=== PATIENT | female | born 1955 | race Caucasian/White ===

== ENCOUNTER → 2019-04-23 10:53 | Outpatient (CLI) | payer BC | END | disposition home or self-care (01) | LOC: D.HCCARDIO 10:53 | PROVIDERS: ATTEND Internal Medicine Cardiovascular Disease | DX: Z03.89 Encounter for observation for other suspected diseases and conditions ruled out (principal) ==

== ENCOUNTER 2019-06-18 11:06 | Outpatient (CLI) | payer BC ==
[~2019-06-18] VITALS: Ht 165.1 cm; Wt 88.5 kg
--- NOTE | ~2019-06-18 | HEMODYNAMI ---
PATIENT:STEVO ARIAS MEDICAL RECORD: [id number] : 53 LOCATION:[place] ADMISSION DATE: 06/18/19 Generatedon:06/18/201914:10 Patient name: STEVO ARIAS Patient #: [id number] SSN: [id number] : 1955 Date of study: 06/18/2019 Page: Of Hemodynamic Procedure Report Patient Data Patient Demographics Procedure consent was obtained First Name: STEVO Gender: Female Last Name: HUGO : 1955 Patient #: [id number] Age: 64 year(s) Race: Unknown SSN: [id number] Additional ID: [id number] Contact details [address]: [address] [place] [address] State: [place] City: [place] Zip code: [address] Past Medical History Allergies: No known allergies Admission Admission Data Admission Date: 06/18/2019 Admission Time: 11:06 Arrival Date: 06/18/2019 Arrival Time: 0:00 Admit Source: Other Insurance Payor: Private health insurance Height (in.): 64.96 BSA: 1.95 (m2) Height (cm.): 165 BMI: 32.32 (kg/m2) Weight (lbs.): 194.01 Weight (kg.): 88 Lab Results Lab Result Date: 06/18/2019 Lab Result Time: 0:00 Biochemistry Name Units Result Min Max BUN mg/dl 10 --(-*--)-- 7 18 Creatinine mg/dl 0.8 --(-*--)-- 0.6 1.3 eGFR ml/min 76.56024 *-(----)-- 90 120 NONAFRICAN CBC Name Units Result Min Max Hemoglobin g/dl 10.4 *-(----)-- 13.5 17.5 Procedure Procedure Types Cath Procedure Diagnostic Procedure C [facility] w/Coronaries Sedation Charges Moderate Sedation up to 30 minutes PCI Procedure Coronary Stent Coronary Stent Initial Hemochron ACT Test Procedure Description Procedure Date Procedure Date: 06/18/2019 Procedure Start Time: 13:39 Procedure End Time: 14:05 Procedure Staff Name Function Ap Giles MD Performing Physician Tiffanie Palumbo RT Monitor Liana Aguilar RT Scrub Renetta Awda RN Nurse Procedure Data Cath Procedure Fluoroscopy Diagnostic fluoroscopy Total fluoroscopy Time: 5.1 time: 5.1 min min Diagnostic fluoroscopy Total fluoroscopy dose: 766 dose: 766 mGy mGy Contrast Material Contrast Material Type Amount (ml) Isovue 300 117 Entry Location Entry Primary Successful Side Size Upsize Upsize Entry Closure Succes sful Closure Location (Fr) 1 (Fr) 2 (Fr) Remarks Device Remarks Femoral Right 5 Fr 6 Fr Exoseal artery Short Estimated blood loss: 10 ml Diagnostic catheters Device Type Used For End Catheter Placement MULTIPACK JL 4.0 5Fr Procedure catheter MULTIPACK 3DRC 5Fr Procedure catheter MULTIPACK Pigtail 5 Fr Ventriculography catheter Procedure Complications No complications Procedure Medications Medication Administration Route Dosage Oxygen etCO2 Nasal cannula 2 l/min Lidocaine 2% added to field 20 Heparin Flush Bag added to field 2 bags (1000units/500ml NS) 0.9% NaCl I.V. 100 ml/hr Versed I.V. 1 mg Fentanyl I.V. 50 mcg Versed I.V. 1 mg Fentanyl I.V. 50 mcg Versed I.V. 1 mg Fentanyl I.V. 50 mcg Heparin Bolus I.V. 8500 units Versed I.V. 1 mg Nitroglycerin IC/IA I.C. 100 mcg Plavix P.O. 600 mg Hemodynamics Rest BSA: 1.95 (m2) HGB: 10.4 (g/dl) O2 Consumption: Estimated: 191.95 (ml/min) O2 Co nsumption indexed: Estimated:98.44 (ml/min/m) Heart Rate: 83 (bpm) Pressure Samples Time Site Value (mmHg) Purpose Heart Use Rate(bpm) 13:47 LV 128/-3,15 Snapshot 88 Gradients Valve Time Site Site Mean SEP/DFP Peak To Heart Use 1 2 (mmHg) (sec/min) Peak Rate (mmHg) (bpm) Aortic 13:48 LV AO 93 Snapshots Pre Cath Intra NCS Post Cath Vital Signs Time Heart Resp SPO2 etCO2 NIBP (mmHg) Rhythm Pain Sedation Rate (ipm) (%) (mmHg) Status Level (bpm) 13:30:11 75 20 98 27.7 125/72(93) NSR 0 (11) 10(A) , No pain 13:34:25 75 16 96 33.7 124/72(98) NSR 0 (11) 10(A) , No pain 13:38:41 81 15 97 30.7 119/74(112) NSR 0 (11) 10(A) , No pain 13:42:57 81 17 97 30.7 121/74(97) NSR 0 (11) 9(A) , No pain 13:47:13 90 17 98 33.7 126/73(98) NSR 0 (11) 9(A) , No pain 13:51:27 85 25 99 35.2 123/79(98) NSR 0 (11) 9(A) , No pain 13:55:45 86 17 96 22.5 117/68(91) NSR 0 (11) 10(A) , No pain 14:00:03 85 14 96 34.5 114/60(96) NSR 0 (11) 10(A) , No pain 14:04:13 85 19 98 33.8 131/81(101) NSR 0 (11) 10(A) , No pain Medications Time Medication Route Dose Verified Delivered Reason Notes Effectiveness by by 13:33:44 Oxygen etCO2 2 Ap Buffie used for Nasal l/min Adan Awad RN procedure cannula 13:33:51 Lidocaine 2% added 20ml Ap Ap for local to vial Adan Giles MD anesthetic field 13:33:58 Heparin Flush added 2 Ap Ap used for Bag to bags Adan Giles MD procedure (1000units/500ml field NS) 13:34:07 0.9% NaCl I.V. 100 Ap Buffie Per physician ml/hr Adan Aawd RN 13:34:19 Versed I.V. 1 mg Ap Buffie for sedation Adan Awad RN 13:34:25 Fentanyl I.V. 50 Ap Buffie for sedation mcg Adan Awad RN 13:40:01 Versed I.V. 1 mg Ap Buffie for sedation Adan Awad RN 13:40:05 Fentanyl I.V. 50 Ap Buffie for sedation mcg Adan Awad RN 13:43:37 Versed I.V. 1 mg Ap Buffie for sedation Adan Awad RN 13:43:40 Fentanyl I.V. 50 Ap Buffie for sedation mcg Adan Awad RN 13:52:10 Heparin Bolus I.V. 8500 Ap Buffie for verif ied units Adan Awad RN anticoagulation with dr giles 13:52:17 Versed I.V. 1 mg Ap Buffie for sedation Adan Awad RN 13:59:52 Nitroglycerin I.C. 100 Ap Ap for IC/IA mcg Adan [place]a 14:04:43 Plavix P.O. 600 Ap Buffie for mg Adan Awad RN antiplatelet therapy Procedure Log Time Note 13:09:30 Diagnostic Cath Status : Elective 13:09:44 Liana Aguilar RT(R) sent for patient. Start room use. 13:09:45 Time tracking: Regular hours (M-F 7:00 - 5:00) 13:09:50 Plan of Care:Hemodynamics will remain stable., Cardiac rhythm will remain stable., Comfort level will be maintained., Respiratory function will remain adequate., Patient/ family verbilizes understanding of procedure., Procedure tolerated without complication., Recovers from procedure without complications.. 13:23:52 Arrival Date: 06/18/2019 12:00:00 AM 13:23:53 Admit Source: Other 13:24:03 Insurance Payor : Private health insurance 13:24:07 Patient Height : 64.96 inches 13:24:11 Patient Weight : 194.01 lbs 13:24:38 Lab Result : Hemoglobin 10.4 g/dl 13:24:38 Lab Result : eGFR NONAFRICAN 76.58030 ml/min 13:24:38 Lab Result : BUN 10 mg/dl 13:24:38 Lab Result : Creatinine 0.8 mg/dl 13:24:49 Use device set Femoral Dx 13:24:50 ACIST Syringe (99863) opened to sterile field. 13:24:50 Bag Decanter (2002) opened to sterile field. 13:24:51 Medline Cath Pack ([id number]) opened to sterile field. 13:24:52 ACIST Hand Control (28890) opened to sterile field. 13:24:53 ACIST Manifold (49641) opened to sterile field. 13:24:53 DIAGNOSTIC Multipack 5Fr catheter set ([id number]) opened to sterile field. 13:24:55 SHEATH 5FR Dousman (MUX850) opened to sterile field. 13:24:56 EMERALD Guide Wire (397-015) opened to sterile field. 13:28:56 Patient received from Pre/Post Procedure Room to [facility] 2 Alert and oriented. Tansferred to table in Supine position. 13::58 Signed procedure consent form obtained from patient. 13::59 Warm blankets applied, and madisyn hugger turned on for patient comfort. 13:29:00 Correct patient and procedure confirmed by team. 13:29:00 ECG and BP/O2 sat monitors applied to patient. 13:29:01 Baseline sample Acquired. 13:29:01 Vital chart was started 13:29:06 Rhythm: sinus rhythm 13:29:07 Full Disclosure recording started 13:29:32 Pre-procedure instructions explained to patient. 13:29:34 Family in patients room. 13:29:39 Patient NPO since Midnight. 13:29:46 Patient allergic to No known allergies 13:29:49 Is the patient allergic to Iodine/contrast media? No. 13:29:51 Was the patient premedicated? Yes 13:29:53 Is patient on blood thinner?No 13:29:55 Patient diabetic? No. 13:30:04 Snore? Yes 13:30:05 Sleep apnea? No 13:30:10 Dentures? Yes tight 13:30:15 Patient pain scale 0/10 ?. 13:30:22 IV patent on arrival in left forearm with 0.9% NaCl at KVO. 13:30:28 Lab results completed and on chart. 13:30:38 Stress Test: yes; abnormal multi 13:30:42 Risk of Mortality: .1 13:30:45 Risk of blood transfusion: 2.7 13:30:50 Risk of CHERY: 2.1 13:30:56 Right groin area was prepped with chlora-prep and draped in sterile fashion 13:30:57 Alarms reviewed by R. N. 13:30:58 Sharps counted by scrub and verified by R.N. 13:30:59 Physician arrived 13::59 --------ALL STOP TIME OUT------ 13:31:00 Final Timeout: patient, procedure, and site verified with staff and physician. All members of the team are in agreement. 13:31:05 Right groin site verified by team. 13:31:10 Fire Safety Assessment: A--An alcohol-based skin anteseptic being used preoperatively., C--Open oxygen or nitrous oxide is being used., D--An ESU, laser, or fiber-optic light is being used. 13:31:14 Physical assessment completed. ASA score P 2 - A patient with mild systemic disease as per Ap Giles MD. 13:31:19 2) 60-89 Mildly reduced kidney function, and other findings (as for stage 1) point to kidney disease. 13:31:22 Maximum allowable contrast dose (3.7 X eGFR X 0.75)210 ml. 13:31:26 Sedation plan: IV Moderate Sedation Medication:Versed, Fentanyl 13:33:44 Oxygen 2 l/min etCO2 Nasal cannula was administered by Renetta Awad RN; used for procedure; Verbal order read back and verified. 13:33:51 Lidocaine 2% 20ml vial added to field was administered by Ap Giles MD; for local anesthetic; Verbal order read back and verified. 13:33:58 Heparin Flush Bag (1000units/500ml NS) 2 bags added to field was administered by Ap Giles MD; used for procedure; Verbal order read back and verified. 13:34:07 0.9% NaCl 100 ml/hr I.V. was administered by Renetta Awad RN; Per physician; Verbal order read back and verified. 13:34:19 Versed 1 mg I.V. was administered by Renetta Awad RN; for sedation; Verbal order read back and verified. 13:34:25 Fentanyl 50 mcg I.V. was administered by Renetta Awad RN; for sedation; Verbal order read back and verified. 13:39:36 Procedure started. 13:39:47 Local anesthetic to right femoral artery with Lidocaine 2% by Ap Giles MD.INITIAL ACCESS ONLY 13:39:55 A 5 Fr sheath was inserted into the Right Femoral artery 13:39:59 J wire advanced. 13:40:01 Versed 1 mg I.V. was administered by Renetta Awad RN; for sedation; Verbal order read back and verified. 13:40:05 Fentanyl 50 mcg I.V. was administered by Renetta Awad RN; for sedation; Verbal order read back and verified. 13:43:37 Versed 1 mg I.V. was administered by Renetta Awad RN; for sedation; Verbal order read back and verified. 13:43:40 Fentanyl 50 mcg I.V. was administered by Renetta Awad RN; for sedation; Verbal order read back and verified. 13:47:12 A MULTIPACK JL 4.0 5Fr catheter was advanced over the wire and used for Procedure. 13:47:15 LCA angiography performed. 13:47:17 Catheter removed. 13:47:24 A MULTIPACK 3DRC 5Fr catheter was advanced over the wire and used for Procedure. 13:47:28 RCA angiography performed. 13:47:30 Catheter removed. 13:47:38 A MULTIPACK Pigtail 5 Fr catheter was advanced over the wire and used for Ventriculography. 13:47:46 LV gram done using PORRAS 13:48:18 EF : 60 % 13:48:27 Catheter removed. 13:48:36 Proceeding to intervention. 13:48:45 Sheath upsized to a 6 Fr Short. 13:50:11 SHEATH 6FR Dousman ([id number]) opened to sterile field. 13:50:11 GUIDE 6FR 3DRC catheter ([id number]) opened to sterile field. 13:50:12 INFLATOR Merit BasixCompak (JD9143) opened to sterile field. 13:50:12 TUBING High Pressure Extension Tubing (Adan) ([id number]) opened to sterile field. 13:50:12 Asahi Minamo 300cm wire opened to sterile field. 13:51:24 Pre PCI Site: [place] pRCA has 70% stenosis. 13:51:38 6 Fr 3DRC guide catheter was inserted over the wire 13:52:10 Heparin Bolus 8500 units I.V. was administered by Renetta Awad RN; for anticoagulation; verified with dr giles Verbal order read back and verified. 13:52:17 Versed 1 mg I.V. was administered by Renetta Awad RN; for sedation; Verbal order read back and verified. 13:52:30 min wire advanced. 13:52:42 Wire advanced across lesion. 13:57:21 Place stent Inflation Number: 1 A INTEGRITY RX 3.5 x 12 stent ([id number]) was prepped and advanced across the Prox RCA 70. The stent was deployed at 14 MAXX for 0:20 (min:sec) 0. 13:57:31 EXOSEAL 6Fr (EX600) opened to sterile field. 13:59:52 Nitroglycerin IC/IA 100 mcg I.C. was administered by Ap Giles MD; for vasodilation; Verbal order read back and verified. 14:01:36 Wire removed. 14:01:37 Guide catheter removed. 14:02:32 Sheath removed intact; hemostasis achieved with Exoseal to the Right Femoral artery. 14:02:40 Procedure ended.(Physican Out) 14:02:52 Fluoroscopy time 05.10 minutes. 14:02:56 Fluoroscopy dose: 766 mGy 14:02:56 Flurop Dose total: 766 14:03:01 Dose Area Product 39869 mGy/cm. 14:03:15 Contrast amount:Isovue 300 117ml. 14:03:31 Maximum allowable dose exceeded? No. 14:03:32 Sharps counted by scrub and verified by R.N. 14:03:34 Insertion/operative site no bleeding no hematoma. 14:03:39 Post-op/insertion site Right Femoral artery dressed using a 4 x 4 and Tegaderm. 14:03:44 Post Procedure Pulses reassessed and unchanged 14:04:02 Post-procedure physical assessment completed. ASA score P 3 - A patient with severe systemic disease as per Ap Giles MD. 14:04:08 Post procedure rhythm: sinus rhythm 14:04:11 Estimated blood loss: 10 ml 14:04:13 Post procedure instruction explained to patient.Patient verbalizes understanding. 14:04:43 Plavix 600 mg P.O. was administered by Renetta Awad RN; for antiplatelet therapy; Verbal order read back and verified. 14:04:43 Procedure type changed to Cath procedure, Diagnostic procedure, LHC, C w/Coronaries, Sedation Charges, Moderate Sedation up to 30 minutes, PCI procedure, Coronary Stent, Coronary Stent Initial, Hemochron ACT Test 14:04:45 Procedure and supply charges have been captured, reviewed, submitted and are correct. 14:05:25 Procedure Complication : No complications 14:05:27 Vital chart was stopped 14:05:33 [facility] Findings: MVD- PCI performed (see procedure note) 14:05:38 Operative report dictated upon procedure completion. 14:05:39 See physician's report for complete and final results. 14:05:42 Report given to Pre/Post Procedure Room. 14:05:46 Patient transfered to Pre/Post Procedure Room with Stretcher. 14:05:48 Procedure ended. 14:05:48 Full Disclosure recording stopped 14:05:55 End room use (Document Last) 14:06:13 End room use (Document Last) 14:06:44 End room use (Document Last) 14:07:48 ACT drawn and resulted at out of range high seconds. (normal therapeutic range 180-240 seconds). Intervention Summary Intervention Notes Time ActionType Lesion and Equipment Action# Pressure Duration Attributes Used 13:57:21 Place stent Prox RCA INTEGRITY RX 1 14 00:20 3.5 x 12 stent ([id number]) Device Usage Item Name Manufacture Quantity Catalog Hospital Part Current Minima l Lot# / Number Charge Number Stock Stock Serial# Code ACIST Acist 1 10890 437858 310335 933035 20 Syringe Medical (25015) Systems Inc Bag Decanter Microtek 1 2001S 436166 26946 799292 5 (2001S) Medical Inc. Medline Cath Medline 1 [id number] 800106 04439 827793 5 Pack ([id number]) ACIST Hand Acist 1 25506 237603 004069 389033 5 Control Medical (86461) Systems Inc ACIST Acist 1 69730 501501 456346 695233 5 Manifold Medical (21298) Systems Inc DIAGNOSTIC Cardinal 1 ZF0754 570507 35878 515073 30 Multipack Health 5Fr catheter set (IW7730) SHEATH 5FR Terumo 1 FDI580 722858 181917 421300 5 Dousman (JHY393) EMERALD Cardinal 1 502-455 901995 870000 589159 5 Guide Wire Health (502-455) MULTIPACK JL Cardinal 1 022078 5 4.0 5Fr Health catheter MULTIPACK Cardinal 1 361934 5 3DRC 5Fr Health catheter MULTIPACK Cardinal 1 175517 5 Pigtail 5 Fr Health catheter SHEATH 6FR Terumo 1 KHO415 221219 878493 130792 40 Dousman (EJL854) GUIDE 6FR Medtronic 1 [id number] 071994 282909 427170 1 3DRC catheter (ZF85YCS) INFLATOR Merit 1 SJ9578 724385 904685 410216 15 Merit Medical BasixCompak (ZA3417) TUBING High Merit 1 [id number] 102992 79034 134840 10 Pressure Medical Extension Tubing (Giles) (VO3773V) Azamhi Yayo Scott Intecc 1 [id number] 090256 3388849 646540 0 300cm wire INTEGRITY RX Medtronic 1 [id number] 934496 271989 229787 5 [id number] 3.5 x 12 stent ([id number]) EXOSEAL 6Fr Cardinal 1 EX600 803001 834037 595656 10 (EX600) Health Signature Audit [place] Stage Time Signature Unsigned Intra-Procedure 06/18/2019 Tiffanie Palumbo 2:06:13 PM RT(R) Intra-Procedure 06/18/2019 Renetta Awad RN 2:06:44 PM Intra-Procedure 06/18/2019 Ap Giles MD 2:10:28 PM Signatures Performing Physician : Signature : Ap Giles MD Date : Time : Monitor : Tiffanie Palumbo Signature : RT Date : Time : Nurse : Renetta Awad RN Signature : Date : Time : [facility] [address], [place] [id number]
[2019-06-18] MEDS ORDERED: CRESTOR20 MG PO (11:28)
[2019-06-18] MEDS ORDERED: EFFEXOR37.5 MG PO (11:28)
[2019-06-18] MEDS ORDERED: OMEPRAZOLE40 MG PO (11:28)
[2019-06-18] MEDS ORDERED: ULTRAM50 MG PO (11:29)
[2019-06-18] MEDS ORDERED: TYLENOL PM1 TAB PO (11:29)
[2019-06-18] MEDS ORDERED: IMODIUM2 MG (11:30)
[2019-06-18] MEDS ORDERED: CLARITIN 10 MG10 MG PO (11:30)
[2019-06-18] MEDS ORDERED: ASPIRIN81 MG PO (11:30)
[2019-06-18] MEDS ORDERED: VITAMIN D10000 UNI1 PO (11:32)
[2019-06-18] MEDS ORDERED: ZOFRAN8 MG PO (11:33)
[2019-06-18] MEDS ORDERED: PHENERGAN25 M1 PO (11:33)
[2019-06-18 11:54] VITALS: BP 143/86; Ht 165.1 cm; Wt 88.5 kg
[2019-06-18 12:21] LABS: ALT (SGPT) 25 U/L (10-68); CALC OSMOLALITY 279 mosm/kg (275-300); CALCIUM 8.6 mg/dL (8.5-10.1); CARBON DIOXIDE 26.1 mmol/L (21.0-32.0); CHLORIDE - SERUM 105 mmol/L (98-107); CHOL - HDL RATIO 3.1 ratio (2.3-4.1); CHOLESTEROL, TOTAL 169 mg/dL (0-200); CREATININE - SERUM 0.8 mg/dL (0.6-1.3); GLUCOSE 100 mg/dL (74-106); HDL CHOLESTEROL 55 mg/dL (32-96); LDL CHOLESTEROL 86 mg/dL (0-100); LDL-HDL RATIO 1.6 ratio (1.5-3.5); POTASSIUM - SERUM 3.4 mmol/L (3.5-5.1); SODIUM 141 mmol/L (136-145); TRIGLYCERIDE 140 mg/dL (30-200); UREA NITROGEN 10 mg/dL (7-18); eGFR NON AFRICAN AMERICAN 76 mL/min (90-120)
[2019-06-18 12:35] LABS: BASOPHILS 0 % (0-2); EOSINOPHILS 0 % (0-7); HEMOGLOBIN 10.4 g/dL (12-16); IMMATURE GRANULOCYTES 0.8 % (0-5); MCH 32.5 pg (26.0-34.0); MCHC 33.5 g/dL (31.0-37.0); MCV 96.9 fL (80.0-100.0); MEAN PLATELET VOLUME 8.7 fL (7.4-10.4); MONOCYTES 5.6 % (2-11); NEUTROPHILS 81.6 % (40-80); PLATELET COUNT 325 10x3/uL (130-400); RDW 12.4 % (11.5-14.5); WBC 4.9 10x3/uL (4.8-10.8)
[2019-06-18] MEDS ORDERED: PLAVIX75 MG PO (14:32)
== END 2019-06-18 18:10 | disposition home or self-care (01) ==
LOC: D.CATH 11:06
PROVIDERS: ATTEND Internal Medicine Cardiovascular Disease
DX: I20.9 Angina pectoris, unspecified (principal); R94.39 Abnormal result of other cardiovascular function study; R06.00 Dyspnea, unspecified

== ENCOUNTER → 2019-11-13 10:14 | Outpatient (CLI) | payer BC ==
[2019-06-18 11:54] VITALS: BMI 32.4
[~2019-11-13 10:14] MED LIST: ASPIRIN81 MG PO; CLARITIN 10 MG10 MG PO; CRESTOR20 MG PO; EFFEXOR37.5 MG PO; IMODIUM2 MG; OMEPRAZOLE40 MG PO; PHENERGAN25 M1 PO; PLAVIX75 MG PO; TYLENOL PM1 TAB PO; ULTRAM50 MG PO; VITAMIN D10000 UNI1 PO; ZOFRAN8 MG PO
== END | disposition home or self-care (01) ==
LOC: D.HCCECHO 10:14
PROVIDERS: ATTEND Internal Medicine Cardiovascular Disease
DX: I25.10 Atherosclerotic heart disease of native coronary artery without angina pectoris (principal)

== ENCOUNTER → 2020-10-01 09:31 | Outpatient (CLI) | payer BC, MEDICARE ==
[2019-06-18 11:54] VITALS: BMI 32.4
== END | disposition home or self-care (01) ==
LOC: D.HCCARDIO 09:31
PROVIDERS: ATTEND Internal Medicine Cardiovascular Disease
DX: R06.00 Dyspnea, unspecified (principal)